=== PATIENT | male | born 1990 | race Caucasian/White ===

== ENCOUNTER 2018-06-01 16:19 | Inpatient (IN) | payer OTHER ==
[~2018-06-01] VITALS: Ht 182.9 cm; Wt 86.2 kg
[2018-06-05] MEDS ORDERED: AUGMENTIN XR 11 EACH PO (11:47)
== END 2018-06-05 13:20 | disposition home or self-care (01) | DRG 395 ==
LOC: ER 16:19 → SURH 19:27
PROVIDERS: ADMIT Surgery
PROC: BW21ZZZ Computerized Tomography (CT Scan) of Abdomen and Pelvis (ICD-10-PCS; principal; 2018-06-01)
DX: I88.0 Nonspecific mesenteric lymphadenitis (principal)

== ENCOUNTER 2020-01-14 20:10 | Emergency (ER) | payer OTHER ==
[~2020-01-14] VITALS: Ht 182.9 cm; Wt 89.4 kg
[~2020-01-14 20:10] MED LIST: AUGMENTIN XR 11 EACH PO
== END 2020-01-15 12:00 | disposition home or self-care (01) ==
LOC: ER 20:10
DX: R10.13 Epigastric pain (principal)